=== PATIENT | female | born 1960 | race African-American/Black ===

== ENCOUNTER 2020-08-28 13:21 | Outpatient (CLI) | payer BC | END 2020-08-28 13:22 | disposition home or self-care (01) | LOC: CSHULT 13:21 | PROVIDERS: ATTEND Family Medicine | DX: E04.1 Nontoxic single thyroid nodule (principal) | CPT/HCPCS: 76536 ==

== ENCOUNTER 2024-05-14 17:46 | Emergency (ER) | payer BC ==
[2024-05-14 19:37] LABS: #Basophils 0.04 10x3/uL (0.0-0.2); #Eosinophils 0.26 10x3/uL (0.0-0.5); #Monocytes 0.54 10x3/uL (0.0-1.1); #Neutrophils 2.99 10x3/uL (1.5-8.4); %Basophils 0.6 % (0.0-2.0); %Eosinophils 3.8 % (0.0-6.0); %Lymphocytes 43.8 % (18.0-47.0); %Monocytes 7.8 % (0.0-10.0); %Neutrophils 43.4 % (40.0-75.0); Hematocrit 40.3 % (34.9-44.5); Hemoglobin 13.7 g/dL (12.0-15.5); Mean Corpuscular Hemoglobin 30.1 pg (27.0-33.0); Mean Corpuscular Volume 88.6 fL (81.6-98.3); Mean Platelet Volume 10.2 fL (7.4-10.4); Platelet Count 264 10x3/uL (150-450); RBC Distribution Width 13.9 % (11.5-14.5); Red Blood Cell (RBC) Count 4.55 10x6/uL (3.90-5.03); White Blood Cell (WBC) Count 6.9 10x3/uL (3.5-10.5)
[2024-05-14] MEDS ORDERED: Ketorolac Tromethamine 30 MG (1 mL) VIAL ONE (19:37)
[2024-05-14 19:50] LABS: ALT (SGPT) 16 U/L (8-55); AST (SGOT) 22 U/L (5-34); Albumin 4.2 g/dL (3.4-4.8); Alkaline Phosphatase 93 U/L (40-110); Anion Gap 15 mmol/L (10-20); BUN (Urea Nitrogen) 12 mg/dL (9.8-20.1); Bilirubin, Total 0.5 mg/dL (0.2-1.2); Calc. Creatinine Clearance 0 mL/min (70-130); Calcium 10.7 mg/dL (7.8-10.44); Carbon Dioxide 27 mmol/L (23-31); Chloride 105 mmol/L (98-107); Estimated GFR 79; Globulin 3.4 g/dL (2.4-3.5); Glucose 110 mg/dL (80-115); Lipase 101 U/L (8-78); Potassium 4.2 mmol/L (3.5-5.1); Protein, Total 7.6 g/dL (5.8-8.1); Sodium 143 mmol/L (136-145)
[2024-05-14 19:56] LABS: Troponin I Less than 0.010 ng/mL (< 0.028)
[2024-05-14 22:34] LABS: Bilirubin Neg (Negative); Blood, Urine Negative (Negative); Clarity Clear (Clear); Glucose, Urine (Dipstick) Normal (Negative); Ketone, Urine Negative (Negative); Leukocyte 25 (Negative); Nitrite Negative (Negative); Protein, Urine (Dipstick) Negative (Neg-Trace); Specific Gravity, Urine 1.015 (1.005-1.030); Urobilinogen Normal mg/dL (Less than 2)
[2024-05-14 23:10] LABS: CAUTI Indications for Culture Alt mental st,lethar; RBC/HPF 0-3 HPF (0-3); WBC/HPF 0-3 HPF (0-3)
[2024-05-14 23:11] LABS: Bacteria/HPF 1+ HPF (None Seen); Squamous Epithelial 0-3 HPF (0-3)
[2024-05-14 23:12] LABS: Urine Culture Reflex No No
== END 2024-05-14 23:10 | disposition home or self-care (01) ==
LOC: CSHERS 17:46
DX: R74.8 Abnormal levels of other serum enzymes (principal); R29.700 NIHSS score 0; I10 Essential (primary) hypertension; Z87.891 Personal history of nicotine dependence; Z79.899 Other long term (current) drug therapy
CPT/HCPCS: 71275; 80053; 81001; 83690; 83880; 84484; 85025; 85379; 93005; 96361; 96374; J1885

== ENCOUNTER 2024-05-23 16:05 | Emergency (ER) | payer BC ==
[2024-05-23] MEDS ORDERED: Morphine 4 MG/ML VIAL ONE (16:57)
[2024-05-23] MEDS ORDERED: Ondansetron PF 4 MG/2 ML Vial ONE (16:57)
[2024-05-23] MEDS ORDERED: Famotidine/PF 20 mg/2ml Vial ONE (16:58)
[2024-05-23 17:37] LABS: #Basophils 0.02 10x3/uL (0.0-0.2); #Eosinophils 0.19 10x3/uL (0.0-0.5); #Monocytes 0.54 10x3/uL (0.0-1.1); #Neutrophils 3.54 10x3/uL (1.5-8.4); %Basophils 0.3 % (0.0-2.0); %Eosinophils 2.7 % (0.0-6.0); %Lymphocytes 38.4 % (18.0-47.0); %Monocytes 7.7 % (0.0-10.0); %Neutrophils 50.6 % (40.0-75.0); Hematocrit 36.4 % (34.9-44.5); Hemoglobin 12.6 g/dL (12.0-15.5); Mean Corpuscular HGB CONC 34.6 g/dL (32.0-36.0); Mean Corpuscular Hemoglobin 30.8 pg (27.0-33.0); Platelet Count 235 10x3/uL (150-450); RBC Distribution Width 13.7 % (11.5-14.5); Red Blood Cell (RBC) Count 4.09 10x6/uL (3.90-5.03)
[2024-05-23 17:53] LABS: ALT (SGPT) 14 U/L (8-55); AST (SGOT) 21 U/L (5-34); Albumin 3.9 g/dL (3.4-4.8); Alkaline Phosphatase 100 U/L (40-110); Anion Gap 14 mmol/L (10-20); BUN (Urea Nitrogen) 16 mg/dL (9.8-20.1); Bilirubin, Total 0.7 mg/dL (0.2-1.2); CK (CPK) 96 U/L (29-168); Calc. Creatinine Clearance 0 mL/min (70-130); Calcium 9.5 mg/dL (7.8-10.44); Carbon Dioxide 25 mmol/L (23-31); Chloride 104 mmol/L (98-107); Estimated GFR 78; Globulin 3.3 g/dL (2.4-3.5); Glucose 106 mg/dL (80-115); Lipase 41 U/L (8-78); Potassium 3.8 mmol/L (3.5-5.1); Protein, Total 7.2 g/dL (5.8-8.1); Sodium 139 mmol/L (136-145)
[2024-05-23 17:55] LABS: Troponin I Less than 0.010 ng/mL (< 0.028)
== END 2024-05-23 18:39 | disposition home or self-care (01) ==
LOC: CSHERS 16:05
DX: M79.602 Pain in left arm (principal); M79.601 Pain in right arm; R10.9 Unspecified abdominal pain; I10 Essential (primary) hypertension; F17.290 Nicotine dependence, other tobacco product, uncomplicated; Z87.891 Personal history of nicotine dependence
CPT/HCPCS: 71045; 76705; 80053; 82550; 83690; 84484; 85025; 93005; 96374; 96375; J2272; J2405; J3490